=== PATIENT | female | born 1960 | race Caucasian/White ===

== ENCOUNTER 2023-05-08 00:11 | Emergency (ER) | payer MEDICAID ==
[~2023-05-08] VITALS: Ht 160 cm; Wt 90.0 kg
[2023-05-08 00:20] VITALS: O2SAT 98
[2023-05-08] MEDS ORDERED: KETOROLAC 60MG/2ML VIAL IM STA (03:35)
[2023-05-08] MEDS ORDERED: ASPI-986 MT (05:58)
[2023-05-08 07:20] VITALS: BP 132/89; PULSE 89; RESP 18; TEMP 98.5
== END 2023-05-08 07:53 | disposition home or self-care (01) ==
LOC: ER 00:11
DX: I63.81 Other cerebral infarction due to occlusion or stenosis of small artery (principal); I10 Essential (primary) hypertension; R20.0 Anesthesia of skin; Z88.0 Allergy status to penicillin
CPT/HCPCS: 99285; 70450; 72125; 96372; J1885

== ENCOUNTER 2024-09-12 11:35 | Emergency (ER) | payer MEDICAID ==
[~2024-09-12] VITALS: Ht 160 cm; Wt 68.0 kg
[~2024-09-12 11:35] MED LIST: AMLO10TA80 MT; ATOR10TA69 MT; CLOP-31 MT; ENAL-77 MT; LEVO-65 MT
[2024-09-12 11:37] VITALS: O2SAT 99
[2024-09-12] MEDS: SODIUM CHLORIDE 0.9% (SEPSIS BOLUS) IV ONE (12:13)
[2024-09-12 12:20] LABS: BASOPHILS % 1.3 % (0.0-2.0); EOSINOPHILS % 1.8 % (0.0-5.0); HEMATOCRIT. 37.3 % (36.0-48.0); HEMOGLOBIN. 12.4 g/dL (12.0-16.0); LYMPHOCYTES % 25.6 % (20.0-50.0); MEAN CORPUSCULAR HEMOGLOBIN 27.8 pg (28.0-32.0); MEAN CORPUSCULAR HGB CONC 33.3 g/dL (31.0-37.0); MEAN CORPUSCULAR VOLUME 83.5 fL (81.0-99.0); MONOCYTES % 4.7 % (2.0-8.0); NEUTROPHILS % 66.6 % (40.0-76.0); PLATELET 436 x1000/uL (130-400); RED BLOOD CELL COUNT 4.47 mill/uL (4.2-5.4); RED CELL DISTRIBUTION WIDTH 15.2 % (11.6-14.6); WHITE BLOOD COUNT 9.1 x1000/uL (4.5-11.0)
[2024-09-12 12:30] LABS: CHLORIDE 108 mEq/L (98-107); POTASSIUM 3.6 mEq/L (3.5-5.1); SODIUM 141 mEq/L (136-145)
[2024-09-12 12:31] LABS: CARBON DIOXIDE 28 mEq/L (21-32)
[2024-09-12 12:36] LABS: CREATININE 0.9 mg/dL (0.6-1.0); GLUCOSE 132 mg/dL (70-105)
[2024-09-12 12:37] LABS: UREA NITROGEN BLOOD 14 mg/dL (9-23)
[2024-09-12 12:38] LABS: ALANINE AMINOTRANSFERASE 9 IU/L (10-49); ALBUMIN 4.3 g/dL (3.2-4.8); ASPARTATE AMINOTRANSFERASE 13 IU/L (<34)
[2024-09-12 12:39] LABS: BILIRUBIN DIRECT < 0.1 mg/dL (<=3.0); BILIRUBIN TOTAL 0.3 mg/dL (0.1-1.0); PROTEIN TOTAL 8.2 g/dL (6.0-8.3)
[2024-09-12 12:54] LABS: TROPONIN I HIGH SENSITIVITY < 4 ng/L (3.0-34)
[2024-09-12 13:50] LABS: CLARITY URINE CLEAR (CLEAR); COLOR URINE YELLOW (YELLOW); GLUCOSE URINE NEGATIVE (NEGATIVE); KETONES URINE NEGATIVE (NEGATIVE); LEUKOCYTE ESTERASE URINE NEGATIVE (NEGATIVE); NITRITE URINE NEGATIVE (NEGATIVE); OCCULT BLOOD URINE NEGATIVE (NEGATIVE); PROTEIN URINE NEGATIVE (NEGATIVE); SPECIFIC GRAVITY URINE 1.003 (1.005-1.030); UROBILINOGEN URINE 0.2 E.U./dL (0.2-1.0)
[2024-09-12] MEDS ORDERED: ONDA4TAB50 MT (14:43)
[2024-09-12 15:18] VITALS: BP 130/85; PULSE 75; RESP 15; TEMP 37.7; O2SAT 99
== END 2024-09-12 15:22 | disposition home or self-care (01) ==
LOC: ER 11:38
DX: R11.2 Nausea with vomiting, unspecified (principal); R07.89 Other chest pain; E78.00 Pure hypercholesterolemia, unspecified; I10 Essential (primary) hypertension; Z86.73 Personal history of transient ischemic attack (TIA), and cerebral infarction without residual deficits; Z79.899 Other long term (current) drug therapy; Z88.0 Allergy status to penicillin; Z88.1 Allergy status to other antibiotic agents
CPT/HCPCS: 99285; 96360; 71045; 80076; 80048; 81003; 83605; 85025; 87040; 87086; 84484; 36415; 84145; 93005; J7030